=== PATIENT | male | born 1985 | race Caucasian/White ===

== ENCOUNTER 2018-09-29 23:00 | Emergency (ER) | payer MEDICAID ==
[~2018-09-29] VITALS: Ht 165.1 cm; Wt 72.6 kg
[2018-09-29 23:05] VITALS: BP 122/76
--- NOTE | 2018-09-29 23:07 | NUR ---
TO LOBBY A/W BED AMBULATORY
[2018-09-29] MEDS ORDERED: LIDOCAINE 1% 500 MG/50 ML VIAL INJ SCH (23:45)
--- NOTE | 2018-09-30 00:14 | NUR ---
PATIENT AMBULATED TO ER BED 10
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
[2018-09-30] MEDS ORDERED: LIDOCAINE MPF 1% - 5 mL VIAL 5 ML ONE (01:02)
--- NOTE | 2018-09-30 01:30 | NUR ---
PT STATES 0/10 PAIN . PAIN AND PRESSURE RELIEVED. CMS INTACT BILAT UPPER EXTREMITIES.
[2018-09-30 01:41] VITALS: BP 132/71
--- NOTE | 2018-09-30 01:41 | NUR ---
DISCHARGE INSTRUCTIONS GIVEN TO PT. NO DEFORMITY NOTED. CMS INTACT. VSS. 0/10 PAIN. RX OF MOTRIN GIVEN. SIDE EFFECTS EXPLAINED. INSTRUCTED TO F/U WITH PCP AND WHEN TO RETURN TO ER. PT VERBALLIZED UNDERSTANDING OF DC INSTRUCTIONS. ALL QUESTIONS ANSWERED.
== END 2018-09-30 01:41 | disposition home or self-care (01) ==
LOC: MED 23:00
DX: S63.255A Unspecified dislocation of left ring finger, initial encounter (principal); Y04.0XXA Assault by unarmed brawl or fight, initial encounter; Y93.89 Activity, other specified; Y92.89 Other specified places as the place of occurrence of the external cause; Y99.8 Other external cause status
CPT/HCPCS: 26770; 73130; 73140; 99284; J2001; Q0092